=== PATIENT | male | born 2005 | race Caucasian/White ===

== ENCOUNTER 2023-10-02 11:30 | Outpatient (CLI) | payer OTHER | END 2023-10-02 14:03 | disposition home or self-care (01) | LOC: SONOGRAMA 11:30 | DX: R10.11 Right upper quadrant pain (principal); K59.00 Constipation, unspecified ==

== ENCOUNTER 2024-04-22 15:22 | Outpatient (CLI) | payer OTHER | END 2024-04-22 15:25 | disposition home or self-care (01) | LOC: RAD 15:22 | PROVIDERS: ATTEND Internal Medicine Gastroenterology | DX: K59.00 Constipation, unspecified (principal) ==

== ENCOUNTER 2024-07-13 07:08 | Outpatient (CLI) | payer OTHER | END 2024-07-13 07:20 | disposition home or self-care (01) | LOC: RAD 07:08 | PROVIDERS: ATTEND Internal Medicine Gastroenterology | DX: K59.00 Constipation, unspecified (principal) ==

== ENCOUNTER 2024-08-03 07:13 | Outpatient (CLI) | payer OTHER | END 2024-08-03 07:14 | disposition home or self-care (01) | LOC: NUCLEAR 07:13 | PROVIDERS: ATTEND Internal Medicine Gastroenterology | DX: K31.84 Gastroparesis (principal) ==